=== PATIENT | male | born 1995 | race Caucasian/White ===

== ENCOUNTER → 2018-03-13 | Outpatient (CLI) | payer OTHER ==
[~2018-03-13] MED LIST: ACET325; ALBU90OI; ALBU90OI INH; ALBU90OI6 INH; AMOX500 PO; AZIT250 PO; BUDE32NIS; FLUO20 PO; HYDACE5325 PO; IBUP800 PO; Keflex500 MG PO; PENVK500 PO; Prednisone20 MG PO; RXPROMSY PO; Veetids 500500 MG PO
[2018-03-13 13:59] LABS: Appearance, Urine Clear (Clear); Bilirubin, Urine Neg (Neg); Blood, Urine 2+ (Neg); Color, Urine Yellow (P-Yellow); Glucose Qualitative, Urine Neg (Neg); Ketones, Urine Neg (Neg); Leukocyte Esterase, Urine 2+ (Neg); Nitrite, Urine Neg (Neg); Protein, Urine 1+ (Neg); Urobilinogen, Urine NORM (Normal)
[2018-03-13 14:10] LABS: Squamous Epithelial Cells Mod /hpf (Few); White Blood Cells, Urine 25-50 /hpf (0-5)
[2018-03-13 14:11] LABS: Bacteria Many /hpf
== END ==
LOC: LAB SHORT 13:37 → LAB 13:37
PROVIDERS: Nurse Practitioner Family
DX: R30.0 Dysuria (principal)
CPT/HCPCS: 81001; 87086

== ENCOUNTER → 2020-10-13 | Outpatient (CLI) | payer OTHER ==
[2020-10-13 09:35] LABS: Source, Urine Clean Catch
[2020-10-13 14:43] LABS: Appearance, Urine Turbid (Clear); Bilirubin, Urine Neg (Neg); Blood, Urine 3+ (Neg); Color, Urine Yellow (P-Yellow); Glucose Qualitative, Urine Neg (Neg); Ketones, Urine Neg (Neg); Leukocyte Esterase, Urine 1+ (Neg); Nitrite, Urine Neg (Neg); Protein, Urine 1+ (Neg); Urobilinogen, Urine NORM (Normal)
[2020-10-13 14:57] LABS: Amorphous Heavy (0-Heavy); Bacteria Few /hpf; Squamous Epithelial Cells Few /hpf (Few)
[2020-10-15 03:10] LABS: CHLAMYDIA TRACHOMATIS, NAA Negative (Negative)
== END | disposition home or self-care (01) ==
LOC: LAB 09:31
PROVIDERS: Family Medicine
DX: R30.0 Dysuria (principal)
CPT/HCPCS: 81001; 87086; 87491; 87591

== ENCOUNTER 2021-09-22 18:55 | Emergency (ER) | payer OTHER ==
[~2021-09-22] VITALS: Ht 193 cm; Wt 156.9 kg
[2021-09-22] MEDS ORDERED: CYCL10 PO (20:57)
== END 2021-09-22 21:10 | disposition home or self-care (01) ==
LOC: ER 18:55
DX: S39.012A Strain of muscle, fascia and tendon of lower back, initial encounter (principal); X58.XXXA Exposure to other specified factors, initial encounter; Z88.2 Allergy status to sulfonamides; J45.909 Unspecified asthma, uncomplicated; F17.210 Nicotine dependence, cigarettes, uncomplicated
CPT/HCPCS: 93005; 93010; 96372; 99283-25; A9270; J1885

== ENCOUNTER 2021-09-23 08:21 | Emergency (ER) | payer OTHER ==
[~2021-09-23] VITALS: Ht 193 cm; Wt 156.9 kg
[~2021-09-23 08:21] MED LIST changes: +CYCL10 PO
[2021-09-23 10:35] LABS: Alanine Aminotransfer (ALT/SGP 136 U/L (12-78); Albumin, Blood 3.7 g/dL (3.4-5.0); Albumin/Globulin Ratio 0.9 (0.8-1.8); Alk Phos 71 U/L (50-136); Anion Gap 7 mmol/L (6-16); Aspartate Aminotrans (AST/SGOT 59 U/L (12-37); Bilirubin, Total 1.4 mg/dL (0.1-1.0); Blood Urea Nitrogen 14 mg/dL (8-24); Bun/Creatinine Ratio 16.1 (12.0-20.0); CO2, Blood 24 mmol/L (21-32); Calcium, Blood 8.9 mg/dL (8.5-10.1); Chloride, Blood 106 mmol/L (98-108); Creatinine, Blood 0.87 mg/dL (0.60-1.20); Globulin, Blood 4.2 g/dL (2.2-4.0); Glomerular Filtration Rate >60 (60-); Glucose, Blood 135 mg/dL (70-99); Potassium, Blood 3.8 mmol/L (3.5-5.5); Sodium, Blood 137 mmol/L (136-145); Total Protein, Blood 7.9 g/dL (6.4-8.2)
[2021-09-23 12:03] LABS: BASOPHILS ABSOLUTE AUTO 0.02 K/mm3 (0.00-0.23); BASOPHILS PERCENT AUTO 0 % (0-2); EOSINOPHILS ABSOLUTE AUTO 0.02 K/mm3 (0.00-0.68); EOSINOPHILS PERCENT AUTO 0 % (0-6); Hematocrit 37.4 % (37.0-53.0); Hemoglobin 12.1 g/dL (13.5-17.5); IMMATURE GRAN ABSOLUTE AUTO 0.07 K/mm3 (0.00-0.10); IMMATURE GRAN PERCENT AUTO 1 % (0-1); LYMPHOCYTES ABSOLUTE AUTO 1.38 K/mm3 (0.84-5.20); LYMPHOCYTES PERCENT AUTO 12 % (21-46); MONOCYTES ABSOLUTE AUTO 1.15 K/mm3 (0.16-1.47); MONOCYTES PERCENT AUTO 10 % (4-13); Mean Corpuscular HGB 28.7 pg (26.0-34.0); Mean Corpuscular HGB Conc 32.4 g/dL (31.5-36.5); Mean Corpuscular Volume 89 fL (80-100); Mean Platelet Volume 10.4 fL (9.1-12.4); NEUTROPHILS ABSOLUTE AUTO 8.96 K/mm3 (1.96-9.15); NEUTROPHILS PERCENT AUTO 77 % (41-73); Platelet Count 214 K/mm3 (150-400); RDW Coefficient Variation 12.6 % (11.7-14.2); RDW Standard Deviation 40.2 fL (35.1-46.3); Red Blood Cell Count 4.22 M/mm3 (4.30-5.90)
== END 2021-09-23 13:28 | disposition home or self-care (01) ==
LOC: ER 08:21
PROVIDERS: Family Medicine
DX: M54.50 Low back pain, unspecified (principal); R10.11 Right upper quadrant pain; J45.909 Unspecified asthma, uncomplicated; F17.290 Nicotine dependence, other tobacco product, uncomplicated
CPT/HCPCS: 36415; 76705; 80053; 83735; 85025; 96372; 99285-25; A9270; J1885

== ENCOUNTER → 2024-06-24 | Outpatient (CLI) | payer OTHER | LOC: LAB 11:12 → LAB SHORT 11:12 | DX: R31.9 Hematuria, unspecified (principal) | CPT/HCPCS: 87086 ==